=== PATIENT | female | born 1990 | race Caucasian/White ===

== ENCOUNTER 2017-11-06 12:39 | Outpatient (CLI) | payer MEDICAID, SELFPAY ==
[2017-11-06 13:10] VITALS: BMI 32.2
[2017-11-06 14:04] LABS: Red Blood Cells-Urine 0 SEEN /hpf (0-5)
[2017-11-06 14:06] LABS: Color, Urine Yellow (Yellow); Glucose, Dipstick Normal (Normal); Ketone-Dipstick Negative (Negative); Leukocyte Esterase-Dipstick 500 /ul (Negative); Nitrite-Dipstick Negative (Negative); Occult Blood-Urine 10 /ul (Negative); Protein-Dipstick Negative (Negative); Urine Bilirubin Dipstick Negative (Negative); Urine Clarity Sl. Cloudy (Clear); Urine Urobilinogen 1 mg/dl (Normal); Urine pH 6.5 (5.0 - 8.0)
[2017-11-06 14:14] LABS: Bacteria 1+ /hpf (None Seen); Mucous, Urine 1+ /hpf (<or=2+); Squamous Epithelial Cells - UA 5-10 SEEN /hpf (5-10); White Blood Cells 10-25 SEEN /hpf (0-5)
[2017-11-06 15:37] LABS: Chlamydia Trachomatis by PCR Negative (Negative); Neisserai gonorrhoeae by PCR Negative (Negative); Probe Check PASS; Sample Adequacy Control PASS; Specimen Processing Control PASS
--- NOTE | 2017-11-08 08:09 | OB.TRI.NOTE ---
History of Present Illness Reason For Visit: CRAMPING History of Present Illness: NST for threatened PTL Home Medications Medication Instructions Recorded Vit Calc,Iron,Folic 1 each PO DAILY 11/06/17 [ Vitamins] Allergies No Known Allergies Allergy (Verified 11/06/17 13:11) NST - FHR Rate Baby A Baseline: 135 Variability:: Moderate Accelerations:: 15 x 15 Decelerations:: None NST Reactive:: Yes Uterine Activity:: quiet Impression/Plan NST for threatened PTL
== END 2017-11-06 13:55 | disposition home or self-care (01) ==
LOC: WPOUT 12:49 → WP 12:56
PROVIDERS: Visit Provider Obstetrics & Gynecology
DX: O60.00 Preterm labor without delivery, unspecified trimester (principal); Z3A.00 Weeks of gestation of pregnancy not specified
CPT/HCPCS: 59025; 59050; 81001; 87086; 87088; 87491; 87591; 99218; G0378

== ENCOUNTER 2017-12-23 22:03 | Outpatient (CLI) | payer MEDICAID, SELFPAY ==
[2017-12-23 22:41] VITALS: BMI 33.6
[2017-12-24 00:56] VITALS: BP 132/75; PULSE 88; RESP 18; TEMP 37.1; O2SAT 98
--- NOTE | 2017-12-24 14:55 | OB.TRI.NOTE ---
History of Present Illness Date of Service: 12/23/17 Was patient seen by the physician?: No Reason For Visit: R/O LABOR Final LIONEL: 01/07/18 Gestational age: 38 Weeks and 0 Days Home Medications Medication Instructions Recorded Vits [Prenatabs FA] 1 tablet PO DAILY 12/24/17 Allergies No Known Allergies Allergy (Verified 12/24/17 00:55) Physical Exam Vitals: Vital Signs Temp Pulse Resp BP Pulse Ox 98.8 F 88 18 132/75 H 98 12/24/17 00:56 12/24/17 00:56 12/24/17 00:56 12/24/17 00:56 12/24/17 00:56 NST - FHR Rate Baby A Baseline: 135 Variability:: Moderate Accelerations:: 15 x 15 Decelerations:: Late NST Reactive:: Yes Uterine Activity:: irregular ctxs Impression/Plan Reactive NST for false labor
== END 2017-12-24 00:25 | disposition home or self-care (01) ==
LOC: WPOUT 22:17 → WP 22:17
PROVIDERS: Family Provider Family Medicine; PCP Family Medicine; Visit Provider Obstetrics & Gynecology
DX: O47.1 False labor at or after 37 completed weeks of gestation (principal); O76 Abnormality in fetal heart rate and rhythm complicating labor and delivery; Z3A.38 38 weeks gestation of pregnancy
CPT/HCPCS: 59025; 59050; 99218; G0378

== ENCOUNTER 2017-12-27 18:50 | Outpatient (CLI) | payer MEDICAID, SELFPAY ==
[2017-12-27 19:23] VITALS: BMI 33.8
[2017-12-27 21:30] VITALS: RESP 18
--- NOTE | 2017-12-27 23:46 | OB.TRI.NOTE ---
History of Present Illness Date of Service: 12/27/17 Was patient seen by the physician?: No Reason For Visit: R/O LABOR Date of Service: 12/27/17 Final LIONEL: 01/07/18 Final LIONEL Source: US <20 weeks Gestational age: 38 Weeks and 3 Days History of Present Illness: @ 38+ wks gestation c/o back and lower abdominal cramping. Home Medications Medication Instructions Recorded Vits [Prenatabs FA] 1 tablet PO DAILY 12/24/17 Allergies No Known Allergies Allergy (Verified 12/24/17 00:55) Physical Exam Vitals: Vital Signs Resp 18 12/27/17 21:30 NST - FHR Rate Baby A Baseline: 140 Variability:: Moderate Accelerations:: 15 x 15 Decelerations:: Variable - had one variable from 140s down to 120 x25 seconds with good return to baseline. NST Reactive:: Yes FHR Category:: Category I Uterine Activity:: irregular contraction pattern Impression/Plan 27yo @ 38+ wks gestation, false labor 1) Cervical exam unchanged per Nursing 2-3/60/-1 2) prolonged monitoring performed- well being established 3) dc home
--- NOTE | 2017-12-27 23:49 | OB.TRI.HP_ITS ---
History of Present Illness Date of Service: 12/27/17 Was patient seen by the physician?: No Reason For Visit: R/O LABOR Date of Service: 12/27/17 Final LIONEL: 01/07/18 Final LINOEL Source: US <20 weeks Gestational age: 38 Weeks and 3 Days History of Present Illness: @ 38+ wks gestation c/o back and lower abdominal cramping. Home Medications Medication Instructions Recorded Vits [Prenatabs FA] 1 tablet PO DAILY 12/24/17 Allergies No Known Allergies Allergy (Verified 12/24/17 00:55) Physical Exam Vitals: Vital Signs Resp 18 12/27/17 21:30 NST - FHR Rate Baby A Baseline: 140 Variability:: Moderate Accelerations:: 15 x 15 Decelerations:: Variable - had one variable from 140s down to 120 x25 seconds with good return to baseline. NST Reactive:: Yes FHR Category:: Category I Uterine Activity:: irregular contraction pattern Impression/Plan 27yo @ 38+ wks gestation, false labor 1) Cervical exam unchanged per Nursing 2-3/60/-1 2) prolonged monitoring performed- well being established 3) dc home
== END 2017-12-27 21:30 | disposition home or self-care (01) ==
LOC: WPOUT 19:22 → WP 19:23
PROVIDERS: Family Provider Family Medicine; PCP Family Medicine; Visit Provider Obstetrics & Gynecology
DX: O47.1 False labor at or after 37 completed weeks of gestation (principal); O76 Abnormality in fetal heart rate and rhythm complicating labor and delivery; Z3A.38 38 weeks gestation of pregnancy
CPT/HCPCS: 59025; 59050; 99218; G0378

== ENCOUNTER 2018-01-01 14:49 | Outpatient (CLI) | payer MEDICAID, SELFPAY ==
[2018-01-01 15:09] VITALS: BMI 33.5
--- NOTE | 2018-01-02 08:10 | OB.TRI.NOTE ---
History of Present Illness Date of Service: 01/01/18 Was patient seen by the physician?: No Reason For Visit: R/O LABOR Date of Service: 01/01/18 Final LIONEL: 01/07/18 Gestational age: 39 Weeks and 2 Days Home Medications Medication Instructions Recorded Vit Calc,Iron,Folic 1 each PO DAILY 11/06/17 [ Vitamins] Allergies No Known Allergies Allergy (Verified 01/01/18 15:11) NST - FHR Rate Baby A Baseline: 145 Variability:: Moderate Accelerations:: 15 x 15 Decelerations:: None NST Reactive:: Yes FHR Category:: Category I Uterine Activity:: q4-5 min Impression/Plan 27yo @ 39.2 wks c/o lower back pain- False labor 1) cervical exam unchanged - not in labor 2) dc home- follow up in office as scheduled 3) labor reviewed by Nursing
== END 2018-01-01 17:00 | disposition home or self-care (01) ==
LOC: WPOUT 15:08 → WP 15:37
PROVIDERS: Visit Provider Obstetrics & Gynecology
DX: O47.1 False labor at or after 37 completed weeks of gestation (principal); Z3A.39 39 weeks gestation of pregnancy
CPT/HCPCS: 59025; 59050; 99218; G0378

== ENCOUNTER 2018-01-06 07:20 | Inpatient (IN) | payer MEDICAID, SELFPAY ==
[2018-01-06 07:41] VITALS: BMI 34.0
--- NOTE | 2018-01-06 08:09 | PCM.HP.OB ---
- Problem List (1) PROM (premature rupture of membranes) Status: Acute Qualifiers: PROM onset of labor timing: onset of labor within 24 hours of rupture PROM gestational age: full term Qualified Code(s): O42.02 - Full-term premature rupture of membranes, onset of labor within 24 hours of rupture (2) GBS bacteriuria Status: Acute (3) Hx of chlamydia infection Status: Resolved (4) Hx of trichomoniasis Status: Resolved History Date of Admission: 01/06/18 Final LIONEL: 01/07/18 Final LIONEL Source: US <20 weeks Gestational age: 39 Weeks and 6 Days History of this : See nurse's note - patient reports SROM for clear fluid this morning. No regular contractions so far, patient reports +FM. Hx of chlamydia and trichomonas infections in this - treated without complication. DAMIEN have been negative. GBS Bacteriuria Hx of tobacco use disorder during - patient smokes up to 1/2 ppd Pertinent Past Medical History: Hx of IUGR in a previous Hx of LGSIL pap - colposcopy done yielded negative biopsy results Otherwise Noncontributory Patient desires PPTL after this Allergies No Known Allergies Allergy (Verified 12/24/17 00:55) Vitamin Smoking Status: Light Smoker (<10/day) Alcohol: None Drug Use: none Number of Fetus(es): 1 Review of Systems Constitutional: Denies: Chills, Fever, Weight Change HEENT: Denies: Head Aches, Sinus Congestion, Sinus Drainage Cardiovascular: Denies: Chest Pain, Palpitations Respiratory: Denies: Cough, Shortness of breath at rest, Sputum production Gastrointestinal: Denies: Abdominal Pain, Nausea, Vomiting Genitourinary: Denies: Dysuria Gynecological: Reports: Vaginal discharge - Discharge c/w SROM for clear fluid Musculoskeletal: Denies: Joint Pain, Joint Tenderness Skin: Denies: Rash, Wounds Neurological: Denies: Numbness, Tingling, Focal weakness Psychiatric: Denies: Anxiety, Depression, Homicidal Ideations, Suicidal Ideations Hematologic/ Lymphatic: Denies: Easy Bruising, Easy Bleeding Physical Exam Vitals: See Nursing Not for Vital Signs FHT baseline 135, moderate variability, + accels, no decels Ctx irregular, mildly palpable General: Alert, Oriented x3, No apparent distress Cardiovascular: Regular rate, Regular Rhythm Lungs: Normal air movement Abdomen: Non Tender, Gravid, Appropriate for Gestational Age Extremities:: No edema Estimated gestational size: Appropriate for gestational size Presentation: Cephalic Cervix Dilation (cm): 3 Station: -2 Effacement (%): 50 Assessment/Plan Active and Suspected Problems PROM (premature rupture of membranes) (Acute) GBS bacteriuria (Acute) A: 27 y/o @ 39.6 weeks, SROM, Category I FHT, GBS + Bacteriuria P: 1) Admit patient 2) IV start with initiation of GBS abx prophylaxis 3) After first dose of abx infused, start IV pitocin for labor augmentation per protocol 4) Anticipate 5) Dr. Ramírez notified of admission and plan of care Nikki Reese CNM
[2018-01-06 08:44] LABS: Hematocrit 35.2 % (37-47); Hemoglobin 12.1 g/dl (12.0-15.0); Mean Corp Hgb Conc 34.4 g/gl (32-36); Mean Corpuscular Hgb 32.4 pg (27.0-32.0); Mean Corpuscular Volume 94.1 fL (81-99); Mean Platelet Vol. 8.7 fl (6.2-12.0); Platelet Count 247 K/mm3 (150-450); RBC Distribution Width CV 14.6 % (11.6-14.6); RBC Distribution Width SD 48.2 fl (35.1-43.9); Red Blood Count 3.74 M/mm3 (4.2-5.4); White Blood Count 9.3 K/mm3 (4.4-11.0)
[2018-01-06] MEDS: Lactated Ringers 1,000 ML 50 ML IV ×3 (08:45→12:53)
[2018-01-06 08:48] LABS: Scan Indicated on CBC? Y/N NO
[2018-01-06] MEDS: Oxytocin 30 units/NS 500 ml 30 UNITS/500 ML IV.SOLN IV (13:10)
--- NOTE | 2018-01-06 18:06 | PCM.PN.BLA ---
Progress Note S: Patient has changed positions frequently throughout day. Pitocin currently at 7 milliunits/min. Patient reports she is starting to feel contractions more strongly, will request epidural when she desires. IUPC already in place. O: VSS, Afebrile - see nurse's notes for vital signs FHT baseline 130, moderate variability, + accels, no decels noted Ctx q 1-3 minutes, MVU >200 consistently SVE = 3/50/-2 by nursing assessment - consider FSE placement for spotty heart rate tracing over last 30 minutes when patient is sitting up A: 27 y/o @ 39.6 weeks, SROM x 12 hours, GBS positive - adequately treated, Pitocin IOL, Category I FHT P: 1) FSE placement now - RN reports she will do now with repeat SVE 2) Continue present management - titrate pitocin accordingly for adequate ctx pattern if needed 3) Anticipate Nikki Reese CNM
--- NOTE | 2018-01-06 20:40 | PCM.PN.BLA ---
Progress Note S; Patient desires epidural, initially comfortable after epidural was placed but now reporting increased pelvic and rectal pressure. Patient requests repeat SVE at this time. O: VSS, Afebrile FHT baseline 145, moderate variability, + accels, early decels and few mild variable decels during contractions Ctx q 2-3 minutes, palpate moderate to strong. MVU >200 SVE = 5-6/75/-2 per RN exam A: 27 y/o @ 39.6 weeks, Pitocin IOL for PROM x 14 hours, Category I-II FHT P: 1) Continue present management 2) Anticipate Nikki Reese CNM
[2018-01-06] MEDS: 0.9% Saline Lock 10 ML Syringe IV (20:45)
[2018-01-06] MEDS: Ondansetron 4 MG/2 ML Vial IV (20:45)
[2018-01-06] MEDS: Oxytocin 30 units/NS 500 ml 30 UNITS/500 ML IV.SOLN 334 UNITS IV (22:10)
--- NOTE | 2018-01-06 22:38 | PCM.OB.VAG ---
- Problem List (1) PROM (premature rupture of membranes) Status: Resolved Qualifiers: PROM onset of labor timing: onset of labor within 24 hours of rupture PROM gestational age: full term Qualified Code(s): O42.02 - Full-term premature rupture of membranes, onset of labor within 24 hours of rupture (2) GBS bacteriuria Status: Resolved (3) Hx of chlamydia infection Status: Resolved (4) Hx of trichomoniasis Status: Resolved Vaginal Delivery Maternal Presentation: Spontaneous Rupture of Membranes Method of Induction: Pitocin Medical Reason for Induction: Premature Rupture of Membranes Amniotic Membrane Rupture Type: Spontaneous at home Rupture of Membrane time: 01/06/18 @ ~6:30am Amniotic Fluid Description: Clear Final LIONEL: 01/07/18 Gestational age: 39 Weeks and 6 Days doctor who attended delivery (if requested by OB): Yvonne Macedo Date of Procedure: 01/06/18 Pre-Operative Diagnosis: PROM @ 39.6 weeks, Pitocin IOL Post-Operative Diagnosis: of viable female Surgery/ Procedure Performed: Spontaneous Vaginal Delivery Anesthesiologist: Zully Osei Type of Anesthesia: Epidural Description of Procedure: Persistent deep variables noted with trina to 60-70s. Nurse survey research associate came to room to personally assess patient. Patient found to be complete/complete/ +1 station. Patient urged to push in sidelying position to facilitate quick delivery of baby. Patient pushed well with urge to crown. Between contractions heart rate did not return to baseline, remained in the 60's. Patient encouraged to push to facilitate delivery, delay of delivery noted. Decision for episiotomy made to facilitate delivery. Episiotomy with 1st degree perineal laceration extension performed. head then delivered in OA and restituted to LOWELL. Tight nuchal cord noted. somersaulted through cord. initially with poor tone, color and respiration. Initial attempt at stimulation with bulb suction on maternal chest done. Poor breathing efforts noted soon after and decision made to cut umbilical cord and hand off to awaiting pediatric team. Apgars 5 and 9. Cord gases ordered - unable to draw up arterial gas as no blood remained in umbilical artery. weight pending. Placenta delivered intake via Gray mechanism intact with 3VC. Placental triage WNL. FF midline @ 2FB below umbilicus. Active management of 3rd stage facilitated with IV pitocin per protocol. Upon inspection of vaginal vault, 1st degree perineal laceration repaired under epidural analgesia with 1 interrupted stitch of 3-0 vicryl. Sponge and needle count correct. Vaginal sweep negative. Baby to breast, bonding initiated. Patient declines assistance in initiating , patient elects formula feeding infant. Nikki Reese CUSTOM FEED MILL OPERATOR HELPER-CNM Presentation: Vertex, LOWELL Placental Delivery Description: Spontaneous Placenta Disposition: [facility] Cord Vessel Description: 3 Vessels Nuchal Cord Compression: With compression Cord Gases drawn per routine: ABG - Attempted but unable to draw as no blood remained in the umbilical artery at the time of the draw, VBG Cord Entanglement: Around neck x 1, tight Estimated Blood Loss: 200 Infant A gender: Female (1 minute): 5 (5 minute): 9 Episiotomy Description: Midline, Perineal Extension/lac, 1st degree - 1 stitch of 3-0 vicryl suture required for repair Laceration: None Medications given after delivery: IV Pitocin Complications: - - Terminal bradycardia facilitating emergent action to deliver baby
[2018-01-06] MEDS: Oxytocin 30 units/NS 500 ml 30 UNITS/500 ML IV.SOLN 167 UNITS IV (22:40)
--- NOTE | 2018-01-06 22:54 | OP.PCM_ITS ---
- Problem List (1) PROM (premature rupture of membranes) Status: Resolved Qualifiers: PROM onset of labor timing: onset of labor within 24 hours of rupture PROM gestational age: full term Qualified Code(s): O42.02 - Full-term premature rupture of membranes, onset of labor within 24 hours of rupture (2) GBS bacteriuria Status: Resolved (3) Hx of chlamydia infection Status: Resolved (4) Hx of trichomoniasis Status: Resolved Vaginal Delivery Maternal Presentation: Spontaneous Rupture of Membranes Method of Induction: Pitocin Medical Reason for Induction: Premature Rupture of Membranes Amniotic Membrane Rupture Type: Spontaneous at home Rupture of Membrane time: 01/06/18 @ ~6:30am Amniotic Fluid Description: Clear Final LIONEL: 01/07/18 Gestational age: 39 Weeks and 6 Days doctor who attended delivery (if requested by OB): Yvonne aMcedo Date of Procedure: 01/06/18 Pre-Operative Diagnosis: PROM @ 39.6 weeks, Pitocin IOL Post-Operative Diagnosis: of viable female Surgery/ Procedure Performed: Spontaneous Vaginal Delivery Anesthesiologist: Zully Osei Type of Anesthesia: Epidural Description of Procedure: Persistent deep variables noted with trina to 60-70s. Nurse milk route supervisor came to room to personally assess patient. Patient found to be complete/complete/ +1 station. Patient urged to push in sidelying position to facilitate quick delivery of baby. Patient pushed well with urge to crown. Between contractions heart rate did not return to baseline, remained in the 60's. Patient encouraged to push to facilitate delivery, delay of delivery noted. Decision for episiotomy made to facilitate delivery. Episiotomy with 1st degree perineal laceration extension performed. head then delivered in OA and restituted to LOWELL. Tight nuchal cord noted. Infant somersaulted through cord. initially with poor tone, color and respiration. Initial attempt at stimulation with bulb suction on maternal chest done. Poor breathing efforts noted soon after and decision made to cut umbilical cord and hand off to awaiting pediatric team. Apgars 5 and 9. Cord gases ordered - unable to draw up arterial gas as no blood remained in umbilical artery. [place] weight pending. Placenta delivered intake via Gray mechanism intact with 3VC. Placental triage WNL. FF midline @ 2FB below umbilicus. Active management of 3rd stage facilitated with IV pitocin per protocol. Upon inspection of vaginal vault, 1st degree perineal laceration repaired under epidural analgesia with 1 interrupted stitch of 3-0 vicryl. Sponge and needle count correct. Vaginal sweep negative. Baby to breast, bonding initiated. Patient declines assistance in initiating , patient elects formula feeding infant. Nikki Reese ROLL UP OPERATOR-CNM Presentation: Vertex, LOWELL Placental Delivery Description: Spontaneous Placenta Disposition: [facility] Cord Vessel Description: 3 Vessels Nuchal Cord Compression: With compression Cord Gases drawn per routine: ABG - Attempted but unable to draw as no blood remained in the umbilical artery at the time of the draw, VBG Cord Entanglement: Around neck x 1, tight Estimated Blood Loss: 200 A gender: Female (1 minute): 5 (5 minute): 9 Episiotomy Description: Midline, Perineal Extension/lac, 1st degree - 1 stitch of 3-0 vicryl suture required for repair Laceration: None Medications given after delivery: IV Pitocin Complications: - - Terminal bradycardia facilitating emergent action to deliver baby
--- NOTE | 2018-01-06 22:56 | DCINST_ITS ---
Discharge Diet: No Restrictions Discharge Activity: Return to Normal Activity, May not drive while taking narcotic pain medications., May Shower May resume sexual activity in: 4-6 weeks Additional Activity Instructions:: Nothing in the vagina for 4-6 weeks. You may return to work/school in 6 weeks. Call your doctor if your incision/area has: Continuous Slow Oozing, Sudden Increased Bleeding, Increased Pain/ Swelling, Increased Redness, Foul Smelling Discharge Call your doctor if you observe: Fever of 101 or Higher, Inability to urinate, Inability to have a bowel movement, Using more than one pad per hour, - - Headache Additional Instructions: If you experience any of the following, contact your healthcare provider. * Bleeding that soaks a pad every hour for 2 hours * Fever 100.4 or higher * Unrelieved incision or abdominal pain * Swelling, redness, discharge or bleeding from your incision or episiotomy site * Your incision begins to separate * Problems urinating (including inability to urinate or burning while urinating) . * Visual changes * Severe headache * Flu-like symptoms * Pain or redness in one of both of your breasts * Pain, warmth, tenderness or swelling in your legs, especially the calf area * Frequent nausea and vomiting * Symptoms of depression or anxiety If you experience any of the following, call 911 or go to the nearest Emergency Room. * Chest pain * Problems breathing * Seizure activity * Partial or complete paralysis of a body part, slurred speech, weakness or drooping of the face, or a sudden inability to walk or hold your balance Allergies/Adverse Reactions: Allergies No Known Allergies Allergy (Verified 12/24/17 00:55) Medications to take at Discharge Vits [Prenatabs FA] 1 tablet PO DAILY 12/24/17 When: Call to make an appointment with your doctor in 6 weeks. If you had elevated Blood Pressure or 4th degree laceration you will need to be seen in 2 weeks. Primary Care Physician: Darryl Shea MD [Primary Care Provider] - Proposed Discharge Date: 01/08/18
[2018-01-07 00:20] VITALS: BP 119/67; PULSE 87; RESP 16; TEMP 36.9; O2SAT 100
[2018-01-07 04:05] VITALS: BP 109/58; PULSE 69; RESP 18; TEMP 36.7; O2SAT 100
--- NOTE | 2018-01-07 07:07 | PCM.PN.OB ---
Subjective: Patient sitting up in bed, reporting no issues at this time. Patient reports baby slept well throughout the night and is feeding well. Objective: scant to small rubra lochia perineum well approximated - Physical Exam General: Alert, Oriented x3, Cooperative HEENT: Atraumatic, PERRLA, Normocephalic Lungs: Clear to auscultation, Normal air movement Cardiovascular: Regular rate, No murmurs Abdomen: Bowel Sounds Present, Soft, Non Tender, Passing Flatus Extremities: No edema, Capillary Refill Less than 3 Seconds Skin: No rashes, No breakdown Musculoskeletal: No Tenderness to Palpation of Joints or Extremities Neurological: Cranial nerves II-XII grossly intact Psych/Mental Status: Normal Affect, Appropriate, Alert and oriented to time, place, person, mood and affect Vital Signs Temp Pulse Resp BP Pulse Ox 98.1 F 69 18 109/58 L 100 01/07/18 04:05 01/07/18 04:05 01/07/18 04:05 01/07/18 04:05 01/07/18 04:05 Oxygen Delivery Method Room Air Weight: 230 lb Body Mass Index (BMI) 34.0 Intake and Output for Last 24 Hours 01/05/18 01/06/18 01/07/18 23:59 23:59 23:59 Intake Total 2351 / 2351 Output Total 700 / 700 300 / 300 Balance 1651 / 1651 -300 / -300 Laboratory Tests Past 24 Hrs 01/06/18 01/06/18 08:30 08:30 WBC 9.3 RBC 3.74 L Hgb 12.1 Hct 35.2 L MCV 94.1 MCH 32.4 H MCHC 34.4 RDW 14.6 RDW Differential 48.2 H Plt Count 247 MPV 8.7 Blood Type O POSITIVE Antibody Screen NEGATIVE Medical Necessity - Tobacco Use Smoking Status: Light Smoker (<10/day) Assessment/Plan A: 27 yo, s/p , PPD #1 P: 1 ) Continue PP orders at this time 2) Anticipate discharge to home tomorrow Nikki Reese CNM
[2018-01-07] MEDS: Ibuprofen 600 MG Tablet PO ×2 (07:34→17:14)
[2018-01-07 07:56] VITALS: BP 105/64; PULSE 65; RESP 16; TEMP 36.5
[2018-01-07 12:33] VITALS: BP 112/67; PULSE 61; RESP 16; TEMP 36.9
[2018-01-07] MEDS: Acetaminophen 500 MG Tablet 1000 MG PO (12:51)
[2018-01-07 15:58] VITALS: BP 125/86; PULSE 72; RESP 16; TEMP 36.3
[2018-01-07 20:55] VITALS: BP 135/85; PULSE 68; RESP 18; TEMP 37.1; O2SAT 98
[2018-01-08 03:35] VITALS: BP 118/62; PULSE 63; RESP 18; TEMP 36.3; O2SAT 100
[2018-01-08] MEDS: Ibuprofen 600 MG Tablet PO (06:46)
[2018-01-08 07:52] VITALS: BP 98/53; PULSE 65; RESP 18; TEMP 36.7; O2SAT 98
--- NOTE | 2018-01-08 09:24 | PCM.PN.BLA ---
Progress Note S: Patient reports no issues at this time. Slept well throughout the night, notes baby is tolerating formula well. Patient reports difficulty and minimal milk supply with her previous children as a reason for formula feeding. Patient denies HERNANDEZ, denies scotoma, denies issues with urination or ambulation. Patient requests discharge to home today. O: VSS, Afebrile; see nursing note for vital signs Nipples intact, breasts soft. No signs of engorgement noted Abdomen NT x 4 quadrants, FF midline @ 2FB below umbilicus Scant rubra lochia, perineum well approximated Negative calf tenderness to palpation, +2/4 reflexes in LE, no edema A: 27 y/o s/p , PPD #2, Normal PP Course P: 1) Discharge to home pending discharge 2) Anticipatory discharge teaching reviewed 3) RTC at [facility] office in 4-5 weeks for pre-op visit with MD for pre-op visit for Tubal Ligation 4) RTC for 6 week PP visit Nikki Reese CNM
--- NOTE | 2018-01-08 09:33 | PN_ITS ---
Progress Note S: Patient reports no issues at this time. Slept well throughout the night, notes baby is tolerating formula well. Patient reports difficulty and minimal milk supply with her previous children as a reason for formula feeding. Patient denies HERNANDEZ, denies scotoma, denies issues with urination or ambulation. Patient requests discharge to home today. O: VSS, Afebrile; see nursing note for vital signs Nipples intact, breasts soft. No signs of engorgement noted Abdomen NT x 4 quadrants, FF midline @ 2FB below umbilicus Scant rubra lochia, perineum well approximated Negative calf tenderness to palpation, +2/4 reflexes in LE, no edema A: 27 y/o s/p , PPD #2, Normal PP Course P: 1) Discharge to home pending discharge 2) Anticipatory discharge teaching reviewed 3) RTC at [facility] office in 4-5 weeks for pre-op visit with MD for pre-op visit for Tubal Ligation 4) RTC for 6 week PP visit Nikki Reese CNM
--- NOTE | 2018-01-08 11:15 | NURSING ---
Infant ID bands checked and verified between mother and infant.
== END 2018-01-08 11:40 | disposition home or self-care (01) | DRG 373 ==
PROVIDERS: Obstetrics & Gynecology; Admitting Provider Obstetrics & Gynecology; Family Provider Family Medicine; PCP Family Medicine; Visit Provider Obstetrics & Gynecology
DX: O42.02 Full-term premature rupture of membranes, onset of labor within 24 hours of rupture (principal); F17.200 Nicotine dependence, unspecified, uncomplicated; O69.1XX0 Labor and delivery complicated by cord around neck, with compression, not applicable or unspecified; O76 Abnormality in fetal heart rate and rhythm complicating labor and delivery; O99.820 Streptococcus B carrier state complicating pregnancy; Z37.0 Single live birth; Z3A.39 39 weeks gestation of pregnancy
CPT/HCPCS: 59025; 59050; 85027; 86850; 86900; 99218; J7030; J7120; A4216; G0378; J2405